=== PATIENT | male | born 1990 | race Two or more races ===

== ENCOUNTER 2025-04-03 06:16 | Emergency (ER) | payer OTHER, MEDICAID, SELFPAY ==
[2025-04-03] VITALS (9 sets, daily range): BP systolic 107–122; BP diastolic 72–84; PULSE 70–90; RESP 16–19; TEMP 36.2–36.8; O2SAT 95–100; BMI 33.3
--- NOTE | 2025-04-03 06:24 | XR_ITS ---
Examination: CT abdomen with intravenous contrast CT pelvis with intravenous contrast 2-D coronal reconstructions 2-D sagittal reconstructions Date and time of exam:April 03, 2025, 0841 hours INDICATIONS: Upper abdominal pain beginning 3 days ago. CTDI: vol (mGy) 8.21 DLP: (mGycm) 498 Technique: Multiple axial sections of the abdomen and pelvis have been obtained. 64 slice high-resolution scanner used. 3 mm axial sections have been obtained, post intravenous injection 60 cc [id number] 2-D sagittal, coronal reconstructions obtained. Low dose protocols were performed. One or more of the following dose reduction techniques were used; automated exposure control, adjustment of the mA and/or KV according to patient size, use of iterative reconstruction technique. Findings: No focal liver or splenic lesions Absent gallbladder No common bile duct or common hepatic duct stones Negative for pancreatic edema Pancreatic duct is not dilated No renal or ureteral calculi, no hydronephrosis 9 mm fat-containing umbilical hernia Normal appendix Mild fluid distended small bowel loops Normal seminal vesicles No prostatomegaly Urinary bladder wall thickened up to 14 mm No bladder calculi IMPRESSION: No common bile duct stones Negative for pancreatitis 9 mm fat-containing umbilical hernia Small bowel ileus versus enteritis Marked thickening of urinary bladder wall, differential would include cystitis
[2025-04-03 07:12] LABS: Basophils # (Auto) 0.1 Thou/mm3 (0.0-0.2); Basophils % (Auto) 1 % (0-2.5); Eosinophils # (Auto) 0.1 Thou/mm3 (0.0-0.5); Eosinophils % (Auto) 3 % (0-10); Hematocrit 36.1 % (41.0-53.0); Hemoglobin 13.4 g/dL (13.5-16.0); Immature Granulocytes Auto 0.01 Thou/mm3 (0.00-0.00); Lymphocytes # (Auto) 1.3 Thou/mm3 (1.0-4.8); Lymphocytes % (Auto) 32 % (10-50); Mean Corpuscular HGB Conc 37.1 g/dl (31.0-37.0); Mean Corpuscular Hemoglobin 35.3 pg (25.0-35.0); Mean Corpuscular Volume 95 fL (80-100); Monocytes # (Auto) 0.6 Thou/mm3 (0.0-0.8); Monocytes % (Auto) 17 % (0-12); Neutrophils # (Auto) 1.8 Thou/mm3 (1.8-7.7); Neutrophils % (Auto) 47 % (37-80); Nucleated Red Blood Cell # 0.00 Thou/mm3 (0.00-0.00); Nucleated Red Blood Cell % 0 /100 WBC (0); Platelet Count 188 Thou/mm3 (140-440); RDW Standard Deviation 41.3 fL (35.1-43.9); Red Blood Count 3.80 Miln/mm3 (4.50-5.90); White Blood Count 3.9 Thou/mm3 (3.8-10.6)
[2025-04-03] MEDS: LIDOCAINE VISCOUS 2% 15 ML UDC PO (07:14)
[2025-04-03] MEDS: Milk Of Magnesia Susp 30 ML UDC PO (07:14)
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
[2025-04-03 07:32] LABS: Alanine Aminotransferase 148 U/L (10-49); Albumin, Serum 3.9 gm/dL (3.5-5.0); Albumin/Globulin Ratio 1.8 (1.2-2.2); Alkaline Phosphatase 107 U/L (46-116); Anion Gap 10 (7-16); Aspartate Amino Transferase 124 U/L (0-34); BUN/Creatinine Ratio 9 Ratio (12-20); Bilirubin,Total 1.5 mg/dL (0.3-1.2); Blood Urea Nitrogen 7 mg/dL (9-23); Calcium 8.7 mg/dL (8.3-10.6); Calcium (Corrected) 8.8 mg/dL (8.5-10.1); Carbon Dioxide 26.1 mMol/L (20.0-31.0); Chloride 105 mMol/L (98-107); Creatinine (Component) 0.8 mg/dL (0.6-1.3); Estimated Creatinine Clearance 211.1 mL/min (>60); Globulin 2.2 gm/dL (2.3-3.5); Glucose 274 mg/dL (74-106); Lipase 57 U/L (12-53); Osmolality,Calculated 289 (275-295); Potassium 3.7 mMol/L (3.4-5.1); Sodium 141 mMol/L (136-145); Total Protein 6.1 gm/dL (5.7-8.2); eGFR > 60 See Note
[2025-04-03 08:10] LABS: Collection Type, Urine Clean Catch
[2025-04-03] MEDS: MORPHINE SULF INJ 4 MG/ML VIAL 2 MG IVP (08:22)
[2025-04-03 08:24] LABS: Bacteria,Urine Rare; Bilirubin,Urine Negative (Negative); Blood,Urine Negative (Negative); Calcium Oxalate Crystals,Urine 1+; Clarity,Urine Clear (Clear/Hazy); Color,Urine Yellow (Lt Yel-Yel); Culture Indicated,Urine Not Indicated; Glucose, Urine 4+ (Negative); Ketones,Urine 3+ (Negative); Leukocyte Esterase,Urine Negative (Negative); Nitrite,Urine Negative (Negative); PH,Urine 6.5 (5.0-7.0); Protein,Urine Trace (Neg - Trace); RBC,Urine 2 /hpf (0-3); Specific Gravity,Urine 1.032 (1.001-1.035); Squamous Epithelial Cell,Urine < 1 /hpf (0-5); Urobilinogen,Urine 12 mg/dL (0.0-1.0); WBC,Urine 1 /hpf (0-5)
--- NOTE | 2025-04-03 11:07 | XR_ITS ---
Examination: Abdomen sonogram, Limited Date and time of exam: April 03, 2025 1113 hours INDICATIONS: Epigastric pain beginning 3 days ago Technique: Real-time borrego scale transabdominal sonographic images of the upper abdomen obtained. Findings: Absent gallbladder Common bile duct 0.9 cm no stones Pancreatic head 2.4 cm Liver 18.4 cm fatty infiltration Normal hepatopedal portal venous flow Patent IVC IMPRESSION: Common bile duct 0.9 cm, no definite stones If biliary colic is a clinical consideration, suggest MRCP follow-up
[2025-04-03] MEDS: HYDROmorphone INJ 2 MG/ML VIAL 0.5 MG IVP ×2 (13:04→18:36)
[2025-04-03 13:16] LABS: Hepatitis A Antibody IgM Non Reactive (Non React); Hepatitis B Core Antibody IgM Non Reactive (Non React); Hepatitis B Surface Antigen Non Reactive (Non React); Hepatitis C Antibody Non Reactive (Non React)
--- NOTE | 2025-04-03 14:31 | XR_ITS ---
Examination: MANSI, hepatobiliary radioisotope scan Date and time of exam: April 03, 2025, 1215 hrs. Indications: Epigastric pain today, cholecystectomy 10 years ago Technique: 6.0 mCi of 99M Hepatolite administered. Serial imaging then obtained from immediate through 60 minutes. Findings: Radioisotope activity within the liver is reasonably homogenous. Common bile duct small bowel activity noted Impression: No common bile duct obstruction, abundant contrast in the small bowel
== END 2025-04-03 19:17 | disposition home or self-care (01) ==
PROVIDERS: Emergency Provider Emergency Medicine
DX: R17 Unspecified jaundice (principal); K59.00 Constipation, unspecified; K42.9 Umbilical hernia without obstruction or gangrene; R10.13 Epigastric pain
CPT/HCPCS: 36415; 74177; 76705; 78227; 80053; 80074; 81001; 83690; 85025; 96374; 96375; 96376; 99284; A4649; A9537; J1171; J2270; J3490; Q9967; A9270